=== PATIENT | female | born 1975 | race American Indian/Alaskan Native ===

== ENCOUNTER 2018-12-05 09:15 | Outpatient (CLI) | payer OTHER ==
--- NOTE | 2018-12-05 10:20 | XRay Report ---
LUMBAR SPINE 3 VIEWS INDICATION / CLINICAL INFORMATION: LOW BACK PAIN. COMPARISON: None available. FINDINGS: VERTEBRAE: No acute fracture. No significant malalignment. Mild levoscoliosis. DISC SPACES / FACET JOINTS:The disc spaces are preserved. Multilevel small lateral osteophytes. Facet joint sclerosis at all levels. PARASPINAL SOFT TISSUES:No significant abnormality. ADDITIONAL FINDINGS: None. IMPRESSION: 1. ]Scoliosis and multilevel facet joint arthropathy. 2. Minimal signs of degenerative disc disease. Signer Name: Floyd Monteiro MD Signed: 12/05/2018 10:16 AM Workstation Name: [id number]
== END 2018-12-05 09:16 | disposition home or self-care (01) ==
LOC: XRAY 09:15
PROVIDERS: ATTEND Internal Medicine
DX: M47.896 Other spondylosis, lumbar region (principal); M54.5 Low back pain; M41.9 Scoliosis, unspecified
CPT/HCPCS: 72100